=== PATIENT | male | born 1950 | race Caucasian/White ===

== ENCOUNTER → 2019-05-21 | Outpatient (CLI) | payer BC ==
[~2019-05-21] MED LIST: AMLO2.5T5 PO; LOSA-73 PO
--- NOTE | 2019-05-21 18:44 | KCIC ---
EXAM: CT bilateral shoulder DATE: 05/21/2019 1:00 PM COMPARISON: No prior INDICATION: Bilateral shoulder pain, prearthroplasty planning. Bilateral shoulder joint osteoarthritis. TECHNIQUE: CT of the bilateral shoulder was performed without IV contrast. PQRS compliance statement - One or more of the following individualized dose reduction techniques were utilized for this study: 1. Automated exposure control 2. Adjustment of the mA and/or kV according to patient size 3. Use of iterative reconstruction technique FINDINGS: Right shoulder: There is severe glenohumeral joint space loss particularly inferiorly. There is subchondral sclerosis and cystic change. Marginal osteophytosis is present. Glenoid remodeling. There is a joint effusion. No definite osteochondral bodies. The humerus is mildly high riding suggesting underlying tendinosis or tear. Negative asymmetric atrophy of the rotator muscles. Negative acute fracture or dislocation. There is acromioclavicular osteoarthritis. Left shoulder: There is severe glenohumeral joint space loss. There is subchondral sclerosis and cystic change. Marginal osteophytosis is present. There is a joint effusion. No definite osteochondral bodies. Glenoid remodeling with flattening of the glenoid. The humerus is mildly high riding suggesting underlying rotator cuff tendinosis or tear. Negative asymmetric atrophy of the rotator muscles. Negative acute fracture or dislocation. There is acromioclavicular osteoarthritis. A 9 x 6 mm lung nodule seen in the right lower lobe (series 5 image 285). IMPRESSION: 1. Severe glenohumeral osteoarthritis bilaterally with subchondral cystic change and bulky osteophytes 2. 9 x 6 mm right lower lobe lung nodule is seen. This is incompletely assessed given motion degradation and dedicated CT chest should be performed. Electronically signed by: Yonatan Acuna MD (05/21/2019 6:42 PM) [facility] [place]
== END | disposition home or self-care (01) ==
LOC: KCIC CT 12:40
PROVIDERS: ATTEND Orthopaedic Surgery
DX: M19.011 Primary osteoarthritis, right shoulder (principal); M19.012 Primary osteoarthritis, left shoulder; M25.412 Effusion, left shoulder; M25.411 Effusion, right shoulder; R91.1 Solitary pulmonary nodule; M25.712 Osteophyte, left shoulder; M25.711 Osteophyte, right shoulder
CPT/HCPCS: 73200

== ENCOUNTER → 2019-06-04 | Outpatient (CLI) | payer BC ==
[~2019-06-04] MED LIST changes: +IOHEXOL 300 MG/ML 100ML VIAL. IV ONE
--- NOTE | 2019-06-04 15:52 | KCIC ---
EXAM: CT Chest without IV contrast INDICATION: Incidental right lower lobe pulmonary nodule identified on recent CT shoulder, referred for further imaging of the chest CT. TECHNIQUE: Multi-detector row CT images were acquired from the thoracic inlet through the upper abdomen without the use of IV contrast. Sagittal and coronal images were acquired from the transaxial data. All CT scans performed at this facility utilize dose optimization techniques as appropriate to the exam, including the following: Automated exposure control and adjustment of the mA and/or KV according to patient size (this includes techniques or standardized protocols for targeted exams where dose is indication/reason for exam). COMPARISON: Right shoulder CT May 21, 2019 FINDINGS: The absence of IV contrast limits evaluation of soft tissue pathology. CARDIOVASCULAR: Unremarkable MEDIASTINUM & PATRICK: Moderate-sized hiatal hernia. LUNGS: The incidentally discovered superior segment right lower lobe pulmonary nodule persists as a 7 x 8 mm nodule in the peripheral right lower lobe (image 107 of 224 axial series 3 and image 57 of 71 on sagittal series 5). In addition, a pleural-based left lower lobe nodule abutting the visceral mediastinum is present measuring 1.0 x 0.6 cm (best illustrated on image 141 of axial series 3). PLEURAL SPACE: No pleural effusions or pneumothorax. OSSEOUS & SOFT TISSUE: Partially imaged bilateral severe degenerative osteoarthrosis of the glenohumeral joints is also noted. ABDOMEN: Included upper abdomen shows an incidental 2.3 cm low-density lesion at the superior pole right kidney, compatible with a cyst, mild diffuse fatty infiltration of the liver, and is surgically absent gallbladder. There is a punctate calcification superficial to the left hepatic lobe that could represent a migrated gallstone versus less likely fat necrosis in the omental fat. IMPRESSION: Bilateral pulmonary nodules measuring 8 mm in the right lower lobe and 10 mm in the left lower lobe. Recommend PET/CT scan, follow-up in 3 months, or biopsy. Electronically signed by: Rica Chung MD (06/04/2019 3:48 PM) [facility]
== END | disposition home or self-care (01) ==
LOC: KCIC CT 10:08
PROVIDERS: ATTEND Family Medicine
DX: R91.8 Other nonspecific abnormal finding of lung field (principal); K44.9 Diaphragmatic hernia without obstruction or gangrene; K76.0 Fatty (change of) liver, not elsewhere classified
CPT/HCPCS: 71260; Q9967

== ENCOUNTER → 2019-09-06 | Outpatient (CLI) | payer BC ==
[~2019-09-06] MED LIST changes: -IOHEXOL 300 MG/ML 100ML VIAL. IV ONE
--- NOTE | 2019-09-06 12:26 | RAD ---
Exam: CT CHEST WITHOUT CONTRAST History: Nodules Comparison: CT chest 06/04/2019 Technique: Helical CT of the chest performed without contrast. Coronal and sagittal reconstructions were obtained. One or more of the following individualized dose reduction techniques were utilized for this examination: 1. Automated exposure control 2. Adjustment of the mA and/or kV according to patient size 3. Use of iterative reconstruction technique. Findings: Thyroid gland and thoracic inlet: Normal. Heart: Heart is normal in size. There is calcified coronary artery atherosclerosis. Thoracic aorta is normal in caliber with mild calcified atherosclerosis. Mediastinum and yemi: No lymphadenopathy. Unchanged moderate hiatal hernia. Lungs: A 8 mm nodule in the superior lateral right lower lobe (image 25, series 8) and 10 mm pleural-based nodule in the medial left lower lobe (image 240, series 8) are unchanged. There are few other scattered small subcentimeter nodules in the lower lobes, also unchanged. No new nodule. Airways are clear. No pleural effusion. Chest wall and axillae: No lymphadenopathy. Upper Abdomen: Cholecystectomy clips are noted. Bones: There is severe bilateral glenohumeral osteoarthrosis, incompletely imaged. Erosive changes with sclerotic rims in the endplates in the lower thoracic and upper lumbar spine are most likely degenerative Schmorl's nodes. IMPRESSION: Unchanged 8 mm pulmonary nodule in the right lower lobe, and 10 mm subpleural pulmonary nodule in the medial left lower lobe. Recommend follow-up CT in 18 months, or earlier based on risk, according to Fleischner Society guidelines (below). According to Fleischner Society Guidelines for solid pulmonary nodules (Radiology 2017; 000:1?16): In low risk multiple nodule patient: <6mm - No follow up required. 6-8mm - CT at 6-12 months, then consider CT at 18-24 months >8mm - CT at 6-12 months, then consider CT at 18-24 months Use most suspicious nodule as guide to management. Follow-up intervals may vary according to size and risk In high risk multiple nodule patient: <6mm - Optional 12 month follow up. 6-8mm - CT at 3-6 months, then CT at 18-24 months >8mm - CT at 3-6 months, then CT at 18-24 months Use most suspicious nodule as guide to management. Follow-up intervals may vary according to size and risk Electronically signed by: Candy Mayo MD (09/06/2019 12:23 PM) [id number]
== END | disposition home or self-care (01) ==
LOC: CT 10:56
PROVIDERS: ATTEND Internal Medicine Pulmonary Disease
DX: R91.8 Other nonspecific abnormal finding of lung field (principal); I25.10 Atherosclerotic heart disease of native coronary artery without angina pectoris; I70.0 Atherosclerosis of aorta; K44.9 Diaphragmatic hernia without obstruction or gangrene; M19.012 Primary osteoarthritis, left shoulder; M19.011 Primary osteoarthritis, right shoulder; Z90.49 Acquired absence of other specified parts of digestive tract
CPT/HCPCS: 71250

== ENCOUNTER → 2020-10-21 | Outpatient (CLI) | payer BC ==
--- NOTE | 2020-10-21 14:26 | KCIC ---
PQRS Compliance Statement: One or more of the following individualized dose reduction techniques were utilized for this examinat ion: 1. Automated exposure control 2. Adjustment of the mA and/or kV according to patient size 3. Use of iterative reconstruction technique CT THORAX WO Clinical Indication: Reason: Lung nodule follow up. / Spl. Instructions: / History: Comparison: CT chest without contrast September 06, 2019. TECHNIQUE: Helical CT imaging of the chest is performed without IV contrast. Findings: There is no adenopathy in the chest, limited evaluation of the yemi without IV contrast. The great ve ssels are stable. 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 There is wills ry artery disease. Cardiac size is normal, no pericardial effusion. There is moderate-sized hiatal he rnia. There is no pleural effusion. 6 x 8 mm noncalcified nodule in the superior segment of the right lower lobe is unchanged. 5 mm nodule in the left lower lobe is stable, image 175. 10 mm nodule in the medi al left lower lobe abutting the mediastinum is unchanged, image 156. No new pulmonary nodule is seen. Cholecystectomy. Bilateral shoulder arthroplasties, incompletely imaged. Thoracic spine alignment is maintained. There are multilevel Schmorl's nodes. IMPRESSION: 1. Interval stability of bilateral lower lobe noncalcified pulmonary nodules. Additional CT follow-u p to document greater than 2 years of stability is suggested. 2. Moderate-sized hiatal hernia. Electronically signed by: Esa Wood MD (10/21/2020 2:23 PM) [facility]
== END ==
LOC: KCIC CT 10:09
PROVIDERS: ATTEND Internal Medicine Pulmonary Disease
DX: I77.810 Thoracic aortic ectasia (principal); R91.8 Other nonspecific abnormal finding of lung field; K44.9 Diaphragmatic hernia without obstruction or gangrene; I25.10 Atherosclerotic heart disease of native coronary artery without angina pectoris; M51.44 Schmorl's nodes, thoracic region
CPT/HCPCS: 71250

== ENCOUNTER → 2020-11-07 | Outpatient (CLI) | payer BC ==
--- NOTE | 2020-11-07 19:08 | CARD ---
MR#: [id number] Date of Study: 11/07/2020 Ordering Physician: HAZEL SAMANIEGO, Referring Physician: HAZEL SAMANIEGO, Tech: Enedina Wolf DR[facility] APPROVED REPORT EXAM: Two-dimensional and M-mode echocardiogram with Doppler and color Doppler. Other Information Quality : AverageHR: 71bpm Rhythm : NSR INDICATION Dizziness and Vertigo 2D DIMENSIONS RVDd4.2 (2.9-3.5cm)Left Atrium(2D)3.3 (1.6-4.0cm) IVSd1.3 (0.7-1.1cm)Aortic Root(2D)3.5 (2.0-3.7cm) LVDd5.0 (3.9-5.9cm)LVOT Diameter2.2 (1.8-2.4cm) PWd1.4 (0.7-1.1cm)LVDs2.8 (2.5-4.0cm) FS (%) 43.7 %SV86.6 ml LVEF(%)74.7 (>50%) Aortic Valve AoV Peak Jas.160.9cm/sAoV VTI42.7cm AO Peak GR.10.4mmHgLVOT Peak Jas.118.4cm/s AO Mean GR.5mmHgAVA (VMAX)2.76cm2 Mitral Valve MV E Mozpbdzs63.4cm/sMV DECEL CPKH617cu MV A Fyavbdto31.3cm/sE/A Ratio1.0 Pulmonary Valve PV Peak Lekpopra52.8cm/s LEFT VENTRICLE The left ventricle is normal size. There is mild concentric left ventricular hypertrophy. The left ve ntricular systolic function is normal and the ejection fraction is within normal range. Estimated eje ction fraction 60-65%. There is normal LV segmental wall motion. Tissue Doppler imaging reveals mild left ventricular diastolic dysfunction. RIGHT VENTRICLE The right ventricle is normal size. There is normal right ventricular wall thickness. The right ventr icular systolic function is normal. ATRIA The left atrium size is normal. The right atrium size is normal. The interatrial septum is intact wit h no evidence for an atrial septal defect or patent foramen ovale as noted on 2-D or Doppler imaging. AORTIC VALVE The aortic valve is normal in structure and function. Doppler and Color Flow revealed no significant aortic regurgitation. There is no significant aortic valvular stenosis. MITRAL VALVE The mitral valve is normal in structure and function. There is no evidence of mitral valve prolapse. There is no mitral valve stenosis. Doppler and Color-flow revealed mild mitral regurgitation. TRICUSPID VALVE The tricuspid valve is normal in structure and function. Doppler and Color Flow revealed no tricuspid valve regurgitation noted. There is no tricuspid valve stenosis. PULMONIC VALVE Doppler and Color Flow revealed no pulmonic valvular regurgitation. There is no pulmonic valvular brina nosis. GREAT VESSELS The aortic root is normal in size. The ascending aorta is normal in size. The IVC is normal in size a nd collapses >50% with inspiration. PERICARDIAL EFFUSION There is no evidence of significant pericardial effusion. Critical Notification Critical Value: No <Conclusion> The left ventricular systolic function is normal and the ejection fraction is within normal range. E stimated ejection fraction 60-65%. There is normal LV segmental wall motion. Signed by : Shiva Joe, Electronically Approved : 11/07/2020 19:07:57
== END ==
LOC: ECHO 08:45
PROVIDERS: ATTEND Internal Medicine Pulmonary Disease
DX: I34.0 Nonrheumatic mitral (valve) insufficiency (principal); I51.7 Cardiomegaly; R06.02 Shortness of breath
CPT/HCPCS: 93306; C8929

== ENCOUNTER → 2020-12-08 | Outpatient (CLI) | payer BC ==
--- NOTE | 2020-12-09 12:24 | SLEEP ---
DATE OF STUDY: 12/08/2020 SLEEP STUDY ATTENDING PHYSICIAN: Tesfaye Clark MD. REFERRING PHYSICIAN: Hazel Srivastava MD. The patient is a 70-year-old who weighs 275 pounds with a BMI of 37. The patient underwent split night study performed at [facility]. During the night study, the patient spent 519 minutes in bed and slept for 356 minutes with a sleep efficiency of 69%. Sleep latency was 26 minutes with a REM latency of 398 minutes. Sleep architecture showed normal stage 1 sleep, increased stage 2 sleep, normal slow wave and reduced REM sleep. During the initial diagnostic portion of the study, the patient slept for 143 minutes. During that time, there were 53 obstructive apneas, 4 hypopneas, 20 mixed apneas, 18 central apneas. The patient's AHI was 40 per hour, supine AHI of 117 per hour. REM sleep was not seen during the diagnostic portion. EKG monitoring revealed normal sinus rhythm. No sustained arrhythmias observed. Nocturnal oximetry study revealed a mean oxygen saturation of 96% with the lowest of 87%. A 17% of time, oxygen saturation remained between 80% and 89%. PLMS were seen at index of 14 per hour and 2 per hour caused EEG arousals. The patient met the criteria for CPAP initiation. It was started at 5 cm water and titrated up to 17 cm water. At the final pressure, the patient slept for 174 minutes, including supine and REM sleep. The patient's AHI was reduced to 12 per hour. There were mostly treatment emergent central apneas. No obstructive apneas or hypopneas were observed. The patient's oxygen saturation remained above 88%. IMPRESSION: 1. Severe obstructive sleep apnea at an AHI of 40 per hour with a supine AHI of 117 per hour. 2. Mild periodic limb movements. 3. Nocturnal hypoxia secondary to obstructive sleep apnea, but resolved with CPAP. RECOMMENDATIONS: 1. CPAP at 7 cm water should be used on a nightly basis. The patient had treatment emergent central apneas, which usually resolves over few months. 2. Follow up in 4-6 weeks to assess compliance with CPAP and to document clinical improvement. In addition, I would also recommend review of the download data to make sure AHI remains less than 5 per hour. 3. Weight loss is advised. 4. 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 5. Cautioned regarding driving until symptoms of sleep apnea resolve with the use of CPAP. NANCY/RANJIT DR: Guilherme TID: [id number] CC: HAZEL SRIVASTAVA MD, MÓNICA CLARK
== END ==
LOC: SLPLAB 19:16
PROVIDERS: ATTEND Internal Medicine Pulmonary Disease
DX: G47.33 Obstructive sleep apnea (adult) (pediatric) (principal); R09.02 Hypoxemia
CPT/HCPCS: 95810